=== PATIENT | male | born 1955 | race Caucasian/White ===

== ENCOUNTER → 2016-11-02 | Outpatient (CLI) | payer OTHER | LOC: MRI SRH 12:20 | DX: M24.812 Other specific joint derangements of left shoulder, not elsewhere classified (principal); Z53.8 Procedure and treatment not carried out for other reasons ==

== ENCOUNTER 2016-12-12 15:40 | Outpatient (CLI) | payer OTHER ==
--- NOTE | 2016-12-12 17:36 | DIAGNOSTIC IMAGING REPORT ---
PROCEDURE: MR UPPER EXTREMITY W/O CONT-LT INDICATION: Left shoulder pain. Possible internal derangement. TECHNIQUE: PD and FAT-SAT PD, axial, and coronal-oblique images. PD and STIR sagittal-oblique images. COMPARISON: Comparison made radiographs of the left shoulder from [facility] falls on 10/17/2016. FINDINGS: There is moderate caudal and positive angulation, and mild degenerative changes of type 2 acromion, and these changes result in moderate to marked impingement. Associated moderate cystic impaction changes of the posterior lateral humeral head. There are mild degenerative changes of the left acromioclavicular joint. There is mild to moderate coracoid impingement (8 mm). There is severe tendinosis of the anterior lateral rotator cuff (supraspinatus, horizontal biceps tendon) with partial thickness intrasubstance tear. In addition, there is a small amount of fluid in the subacromial/subdeltoid bursa and subacromial recess. There is a large tear of the superior labrum which extends posteriorly and inferiorly. Findings associated with moderate degenerative changes and chondromalacia of the posterior glenohumeral joint with subchondral cyst formation. Biceps tendon is intact. IMPRESSION: 1. Moderate caudal and positive angulation of type 2 acromion results in moderate to marked impingement. 2. Mild to moderate coracoid impingement (8 mm). 3. Mild degenerative change of the left acromioclavicular joint. 4. Severe tendinosis of the anterior lateral rotator cuff (supraspinatus, horizontal biceps tendon) with partial thickness intrasubstance tear. In addition, there is a small amount of fluid in the subacromial/subdeltoid bursa, an occult full-thickness tear should be considered. 5. There is a large tear of the superior labrum which extends posteriorly and inferiorly (SLAP type lesion). 6. Moderate degenerative changes of the left glenohumeral joint which are most pronounced posteriorly.
== END 2016-12-12 23:00 ==
LOC: MRI SRH 15:40
DX: M24.112 Other articular cartilage disorders, left shoulder (principal); M75.42 Impingement syndrome of left shoulder; M19.012 Primary osteoarthritis, left shoulder; M75.102 Unspecified rotator cuff tear or rupture of left shoulder, not specified as traumatic; S43.432A Superior glenoid labrum lesion of left shoulder, initial encounter